=== PATIENT | male | born 1960 | race Caucasian/White ===

== ENCOUNTER 2025-02-07 05:55 | Day surgery (SDC) | payer MEDICARE, SELFPAY ==
[2025-02-07] VITALS (13 sets, daily range): BP systolic 102–189; BP diastolic 47–85; PULSE 52–72; RESP 12–31; TEMP 36.7–36.9; O2SAT 96–100
--- NOTE | ~2025-02-07 | XR_ITS ---
EXAMINATION: C-arm fluoroscopic guidance for retrograde pyelogram and stent placement left side. DATE: 02/07/2025 INDICATION: C-arm assistance for retrograde placement of stent in the left ureter. COMPARISON: CT abdomen and pelvis dated 02/07/2025. FINDINGS: C-arm assistance was provided. Fluoroscopic exposure time 59 seconds. Spot images were obtained documenting the contrast the pelvicalyceal system and left ureter showing hydronephrosis. Proximal end of the stent is noted in the spot images. IMPRESSION: 1. As mentioned above Reviewed, dictated and finalized at location T. RETE BATCHER IMPRESSION: 1. As mentioned above
--- NOTE | ~2025-02-07 | CT_ITS ---
CT ABDOMEN AND PELVIS WITHOUT CONTRAST Clinical History: flank pain, suspect stone Comparison: None Technique: Unenhanced axial images lung bases to symphysis pubis Coronal, sagittal reformats CT images acquired with automatic exposure control for dose reduction DLP: 488 mGy-cm Findings: Without intravenous contrast, sensitivity for detecting visceral parenchymal abnormalities decreased. Lung bases: Clear. Visualized heart and pericardium: Unremarkable. Liver: Unremarkable. Gallbladder: Unremarkable. Spleen: Unremarkable. Pancreas: Unremarkable. Adrenal glands: Unremarkable. Kidneys: Right kidney- No hydronephrosis. A few stones, largest 7 mm. Left kidney- hydronephrosis. A few stones, largest 5 mm. 5 mm stone proximal ureter. Distal esophagus/stomach: Unremarkable. Small bowel loops: Normal caliber and wall thickness. Colon: Normal caliber and wall thickness. Normal RLQ appendix. Nodes: No enlarged nodes. Peritoneum: No ascites. No free intraperitoneal air. Urinary bladder: Unremarkable. Prostate: Prominent. Bones: No acute bony abnormality. Soft tissues: Unremarkable. Unopacified abdominal aorta: No aneurysmal dilatation. Mild atherosclerotic disease. IMPRESSION: 1. Left kidney hydronephrosis due to 5 mm stone proximal ureter. 2. Bilateral nephrolithiasis. Reviewed, dictated and finalized at location R. IN EXTERMINATOR
[2025-02-07] MEDS: HYDROmorphone HCL INJ (*CRX) 1 MG/ML SYR IV PUSH ×4 (06:09→11:21)
[2025-02-07] MEDS: ONDANSETRON INJ 4 MG/2 ML VIAL IV PUSH (06:09)
[2025-02-07] MEDS: LACTATED RINGERS 1,000 ML 999 ML IV CONT ×2 (06:10→07:44)
--- NOTE | 2025-02-07 06:14 | ED_ITS ---
HPI - Abdominal Pain General Chief Complaint: Abdominal Pain <Vishal Gonzalez MD - Last Filed: 02/07/25 07:30> Stated Complaint: Abd/flank pain <Vishal Gonzalez MD - Last Filed: 02/07/25 07:30> Time Seen by Provider: 02/07/25 06:02 <Vishal Gonzalez MD - Last Filed: 02/07/25 07:30> History of Present Illness HPI narrative: 65-year-old male with history of hypertension asthma presenting to the emergency department today with severe abdominal pain. Patient states that started around 11:00 a.m. last night and he was having some difficulties peeing. He states the pain started his left flank and started radiating towards his left back and down into his groin near this testicles. Denies any history of kidney stones. Patient states the pain got worse throughout the evening and he was still having trouble going to the bathroom. No traumatic injuries. Did not take anything for symptoms. Was otherwise in his normal state of health. No fever chills. No chest pain difficulty in breathing. No cardiac history, no vascular history, no surgical history besides a shoulder surgery. <Vishal Gonzalez MD - Last Filed: 02/07/25 07:30> Related Data Allergies/Adverse Reactions: Allergies Allergy/AdvReac Type Severity Reaction Status Date / Time Penicillins Allergy Unknown Unknown Verified 12/29/24 15:40 ibuprofen AdvReac Intermediate FLARES Verified 12/29/24 15:40 ASTHMA <Vishal Gonzalez MD - Last Filed: 02/07/25 07:30> Review of Systems 2 Review of Systems: As reviewed above in HPI <Vishal Gonzalez MD - Last Filed: 02/07/25 07:30> [facility] Past Medical History Medical History: Medical History (Updated 02/07/25 @ 14:51 by Hugh Maza MD) Asthma Overweight <Vishal Gonzalez MD - Last Filed: 02/07/25 07:30> Family History Family History: Family History Sibling Family history of diabetes mellitus in first degree relative Other Carcinoma of colon <Vishal Gonzalez MD - Last Filed: 02/07/25 07:30> Social History Social History: Social History Smoking status: Current some day smoker Tobacco type: cigars Alcohol intake: never Substance use: never Substance use type: does not use Lack of Transportation: No Lack of Food: Never True Current Housing: I Have Housing Concerned About Future Housing: No Difficulty Paying Gas/Electric Bills: No Difficulty Paying for Meds: No Currently Unemployed: No Difficulty w/ Childcare or Family Care: No Living arrangements: with family Spiritual care concerns: No <Vishal Gonzalez MD - Last Filed: 02/07/25 07:30> Exam 2 Narrative: GENERAL: Uncomfortable appearing, writhing around in pain complaining of abdominal left lower quadrant/flank pain HEAD: Normocephalic and atraumatic EYES: PERRLA ENT: Nares clear, no rhinorrhea or epistaxis. Mucous membranes moist. NECK: Supple. CHEST: [Clear to auscultation. No respiratory distress.] HEART: [Regular rate and rhythm]. No murmur heard. [Normal peripheral pulses.] ABDOMEN: Protuberant but soft, reproducible tenderness in the left lower quadrant and left flank. No overlying skin discoloration or bruising. No masses. EXTREMITIES: Normal range of motion. No edema SKIN: Warm, dry, no rash. NEURO: [No focal deficits]. Alert and oriented [x3.] PSYCH: [Normal mood and affect.] <Vishal Gonzalez MD - Last Filed: 02/07/25 07:30> Course Course Emergency Course: Uncontrolled pain. Discussed with urology. Will go to OR for stent. < Roberto Boyce MD - Last Filed: 02/07/25 18:48> Vital Signs Vital signs: Vital Signs Pulse Rate 62 02/07/25 05:59 Respiratory Rate 22 H 02/07/25 05:59 Pulse Oximetry 100 02/07/25 05:59 Oxygen Delivery Room Air 02/07/25 05:59 Temperature 98.0 F 02/07/25 15:30 Pulse Rate 66 02/07/25 17:10 Respiratory Rate 16 02/07/25 17:10 Blood Pressure 149/84 H 02/07/25 17:10 Pulse Oximetry 100 02/07/25 16:40 Oxygen Delivery Room Air 02/07/25 17:10 Oxygen Flow Rate 8 02/07/25 16:00 <Vishal Gonzalez MD - Last Filed: 02/07/25 07:30> Vital Signs Pulse Rate 62 02/07/25 05:59 Respiratory Rate 22 H 02/07/25 05:59 Pulse Oximetry 100 02/07/25 05:59 Oxygen Delivery Room Air 02/07/25 05:59 Temperature 98.0 F 02/07/25 15:30 Pulse Rate 66 02/07/25 17:10 Respiratory Rate 16 02/07/25 17:10 Blood Pressure 149/84 H 02/07/25 17:10 Pulse Oximetry 100 02/07/25 16:40 Oxygen Delivery Room Air 02/07/25 17:10 Oxygen Flow Rate 8 02/07/25 16:00 <Roberto Boyce MD - Last Filed: 02/07/25 18:48> MDM MDM Narrative Medical decision making narrative: 65-year-old male with history of hypertension asthma presenting to the emergency department today with severe abdominal pain. Patient states that started around 11:00 a.m. last night and he was having some difficulties peeing. He states the pain started his left flank and started radiating towards his left back and down into his groin near this testicles. Denies any history of kidney stones. Patient states the pain got worse throughout the evening and he was still having trouble going to the bathroom. No traumatic injuries. Did not take anything for symptoms. Was otherwise in his normal state of health. No fever chills. No chest pain difficulty in breathing. No cardiac history, no vascular history, no surgical history besides a shoulder surgery. Abdomen is protuberant but soft, reproducible tenderness in the left lower quadrant and left flank. No overlying skin discoloration or bruising. No masses. He is writhing around and uncomfortable appearing. Hypertensive likely component of pain. No tachycardia or fever. No hypoxemia. Tachypneic from pain. Patient given a mg of Dilaudid, fluid bolus, Zofran. CT scan without contrast obtained to rule out kidney stone or other potential abdominal pathology. Urinalysis and laboratory studies obtained. Suspect renal colic, kidney stone, obstructing UVJ stone, constipation, diverticulitis less likely, low suspicion cardiovascular causes. CT scan independently reviewed and he does have some kidney stones in the left- sided 5 mm stone with mild hydro. No leukocytosis. Patient has only 48 cc on his bladder scan. Given additional fluid bolus so we can get a urinalysis to see if there is a concomitant infection. His pain is resolved and his vitals have all normalized with pain control. Will refer to urology for follow-up and prescriptions sent. <Vishal Gonzalez MD - Last Filed: 02/07/25 07:30> Differential Diagnosis Differential Diagnosis: Suspect renal colic, kidney stone, obstructing UVJ stone, constipation, diverticulitis less likely, low suspicion cardiovascular causes. <Vishal Gonzalez MD - Last Filed: 02/07/25 07:30> Lab Data MDM Lab Attestation statement: I personally reviewed the patient's lab results. <Vishal Gonzalez MD - Last Filed: 02/07/25 07:30> Result diagrams: 02/07/25 06:11 02/07/25 06:11 <Vishal Gonzalez MD - Last Filed: 02/07/25 07:30> Labs: Lab Results 02/07/25 02/07/25 Range/Units 06:11 09:02 WBC 8.3 (4.5-10.0) K/mm3 RBC 4.77 (4.6-6.20) M/mm3 Hgb 13.7 L (14.0-18.0) g/dL Hct 40.8 L (42.0-52.0) % MCV 85.5 (80-100) fl MCH 28.7 (26-34) pg MCHC 33.6 (32-36) g/dl RDW 13.2 (11.5-14.5) % Plt Count 192 (150-375) k/mm3 MPV 8.5 (7.4-10.4) fl Immature Gran % (Auto) 0.2 (0-0.5) % Neut % (Auto) 84.4 H (45.5-73.1) % Lymph % (Auto) 10.7 L (18.3-44.2) % [place] % (Auto) 4.3 (2.6-8.5) % Eos % (Auto) 0.2 (0-4.4) % Baso % (Auto) 0.2 (0.2-1.2) % Lymph # (Auto) 0.89 L (0.9-3.2) K/mm3 [place] # (Auto) 0.4 (0.1-0.6) K/mm3 Eos # (Auto) 0.0 (0-0.3) K/mm3 Baso # (Auto) 0.0 (0.0-0.1) K/mm3 Abs Immat Gran (auto) 0.02 (0.00-0.031) K/mm3 Absolute Neuts (auto) 7.0 H (1.3-6.7) K/mm3 Absolute Nucleated RBC 0.000 (0.0-0.012) K/mm3 Nucleated RBC % 0.0 (0.0-0.2) % Sodium 132 L (137-145) mmol/L Potassium 4.2 (3.4-5.0) mmol/L Chloride 99 (98-107) mmol/L Carbon Dioxide 21 L (22-30) mmol/L Anion Gap 12 (4-12) mmol/L BUN 26 H (9-20) mg/dL Creatinine 1.42 H (0.7-1.3) mg/dL Estim Creat Clear Calc Not Reportable Estimated GFR 50 L (59 - ) Glucose 152 H (65-110) mg/dL Calcium 9.1 (8.4-10.2) mg/dL Total Bilirubin 0.6 (0.2-1.3) mg/dL AST 36 (17-59) U/L ALT 28 (6-50) U/L Alkaline Phosphatase 112 (38-126) U/L Total Protein 8.3 H (6.3-8.2) g/dL Albumin 4.8 (3.5-5.1) g/dL Lipase 74 (23-300) U/L Urine Color Yellow (Yellow) Urine Appearance Clear (Clear) Urine pH 5.0 (5.0-9.0) Ur Specific [place] 1.020 (1.001-1.035) Urine Protein Trace (Negative) mg/dL Urine Glucose (UA) Negative (Negative) mg/dL Urine Ketones 1+ H (Negative) mg/dL Ur Blood (Man) Negative (Negative) Urine Nitrate Negative (Negative) Urine Bilirubin Negative (Negative) Urine Urobilinogen 0.2 (<2.0) mg/dL Leukocyte Esterase Rfl Negative (Negative) HANDY/UL Urine RBC 0-2 (0-2) /hpf Urine WBC 0-5 (0-3) /hpf Ur Squamous Epith Cells None seen (Few) /hpf Urine Bacteria None seen /hpf Urine Casts 0-2 <Vishal Gonzalez MD - Last Filed: 02/07/25 07:30> Lab Results 02/07/25 02/07/25 Range/Units 06:11 09:02 WBC 8.3 (4.5-10.0) K/mm3 RBC 4.77 (4.6-6.20) M/mm3 Hgb 13.7 L (14.0-18.0) g/dL Hct 40.8 L (42.0-52.0) % MCV 85.5 (80-100) fl MCH 28.7 (26-34) pg MCHC 33.6 (32-36) g/dl RDW 13.2 (11.5-14.5) % Plt Count 192 (150-375) k/mm3 MPV 8.5 (7.4-10.4) fl Immature Gran % (Auto) 0.2 (0-0.5) % Neut % (Auto) 84.4 H (45.5-73.1) % Lymph % (Auto) 10.7 L (18.3-44.2) % [place] % (Auto) 4.3 (2.6-8.5) % Eos % (Auto) 0.2 (0-4.4) % Baso % (Auto) 0.2 (0.2-1.2) % Lymph # (Auto) 0.89 L (0.9-3.2) K/mm3 [place] # (Auto) 0.4 (0.1-0.6) K/mm3 Eos # (Auto) 0.0 (0-0.3) K/mm3 Baso # (Auto) 0.0 (0.0-0.1) K/mm3 Abs Immat Gran (auto) 0.02 (0.00-0.031) K/mm3 Absolute Neuts (auto) 7.0 H (1.3-6.7) K/mm3 Absolute Nucleated RBC 0.000 (0.0-0.012) K/mm3 Nucleated RBC % 0.0 (0.0-0.2) % Sodium 132 L (137-145) mmol/L Potassium 4.2 (3.4-5.0) mmol/L Chloride 99 (98-107) mmol/L Carbon Dioxide 21 L (22-30) mmol/L Anion Gap 12 (4-12) mmol/L BUN 26 H (9-20) mg/dL Creatinine 1.42 H (0.7-1.3) mg/dL Estim Creat Clear Calc Not Reportable Estimated GFR 50 L (59 - ) Glucose 152 H (65-110) mg/dL Calcium 9.1 (8.4-10.2) mg/dL Total Bilirubin 0.6 (0.2-1.3) mg/dL AST 36 (17-59) U/L ALT 28 (6-50) U/L Alkaline Phosphatase 112 (38-126) U/L Total Protein 8.3 H (6.3-8.2) g/dL Albumin 4.8 (3.5-5.1) g/dL Lipase 74 (23-300) U/L Urine Color Yellow (Yellow) Urine Appearance Clear (Clear) Urine pH 5.0 (5.0-9.0) Ur Specific [place] 1.020 (1.001-1.035) Urine Protein Trace (Negative) mg/dL Urine Glucose (UA) Negative (Negative) mg/dL Urine Ketones 1+ H (Negative) mg/dL Ur Blood (Man) Negative (Negative) Urine Nitrate Negative (Negative) Urine Bilirubin Negative (Negative) Urine Urobilinogen 0.2 (<2.0) mg/dL Leukocyte Esterase Rfl Negative (Negative) HANDY/UL Urine RBC 0-2 (0-2) /hpf Urine WBC 0-5 (0-3) /hpf Ur Squamous Epith Cells None seen (Few) /hpf Urine Bacteria None seen /hpf Urine Casts 0-2 <Roberto Boyce MD - Last Filed: 02/07/25 18:48> Imaging Data Radiologist's impression: ITS Impressions Abdomen/Pelvis CT 02/07/25 06:30 IMPRESSION: 1. Left kidney hydronephrosis due to 5 mm stone proximal ureter. 2. Bilateral nephrolithiasis. Retrograde Pyelogram 02/07/25 15:35 IMPRESSION: 1. As mentioned above <Vishal Gonzalez MD - Last Filed: 02/07/25 07:30> ITS Impressions Abdomen/Pelvis CT 02/07/25 06:30 IMPRESSION: 1. Left kidney hydronephrosis due to 5 mm stone proximal ureter. 2. Bilateral nephrolithiasis. Retrograde Pyelogram 02/07/25 15:35 IMPRESSION: 1. As mentioned above <Roberto Boyce MD - Last Filed: 02/07/25 18:48> Discharge Plan Discharge Clinical Impression: Left ureteral stone <Vishal Gonzalez MD - Last Filed: 02/07/25 07:30> Patient Disposition: Still a Patient <Vishal Gonzalez MD - Last Filed: 02/07/25 07:30> Condition: Stable <Vishal Gonzalez MD - Last Filed: 02/07/25 07:30>
[2025-02-07 06:18] LABS: Hematocrit 40.8 % (42.0-52.0); Hemoglobin 13.7 g/dL (14.0-18.0); Immature Granulocyte Percent A 0.2 % (0-0.5); Lymphocytes Absolute Auto 0.89 K/mm3 (0.9-3.2); Mean Corpuscular HGB Conc 33.6 g/dl (32-36); Mean Corpuscular Hemoglobin 28.7 pg (26-34); Mean Corpuscular Volume 85.5 fl (80-100); Nucleated Red Blood Cells Absolute Auto 0.000 K/mm3 (0.0-0.012); Nucleated Red Blood Cells Perc 0.0 % (0.0-0.2); Platelet Count Result 192 k/mm3 (150-375); Red Blood Count 4.77 M/mm3 (4.6-6.20); White Blood Count 8.3 K/mm3 (4.5-10.0)
[2025-02-07 06:28] LABS: Alanine Aminotransferase 28 U/L (6-50); Albumin Level 4.8 g/dL (3.5-5.1); Alkaline Phosphatase 112 U/L (38-126); Anion Gap 12 mmol/L (4-12); Aspartate Amino Transferase 36 U/L (17-59); Bilirubin,Total 0.6 mg/dL (0.2-1.3); Blood Urea Nitrogen 26 mg/dL (9-20); Calcium 9.1 mg/dL (8.4-10.2); Carbon Dioxide 21 mmol/L (22-30); Chloride 99 mmol/L (98-107); Estimated Glomerular Filt Rate 50; Glucose 152 mg/dL (65-110); Lipase 74 U/L (23-300); Potassium 4.2 mmol/L (3.4-5.0); Sodium 132 mmol/L (137-145); Total Protein 8.3 g/dL (6.3-8.2)
--- NOTE | 2025-02-07 08:42 | PC.NURSE ---
patient asked for urine sample again at this time. patient has been unable to urinate and given second bag of fluids to assist. patient declines straight cath and will attempt to give urine at this time.
[2025-02-07 09:47] LABS: Add Urine Microscopic? YES; Appearance Urine Clear (Clear); Glucose Urine UA Negative (Negative); Leukocyte Esterase Ur Negative LEU/UL (Negative); Nitrate Urine Negative (Negative); Non Pathogenic Casts 0-2; Specific Grav Ur 1.020 (1.001-1.035)
--- NOTE | 2025-02-07 14:38 | WPDURCON ---
Assessment and Plan Assessment and plan (1) Left ureteral stone: Code(s): N20.1 - Calculus of ureter Status: Acute Assessment and Plan: IV fluids IV narcotics NPO cystoscopy with left ureteral stent placement anticipate ESWL in near future Urology Consult Note HPI Date Seen: 02/07/25 Requesting Physician: Timmy Saldana MD Primary Care Provider: Camilo Rapp MD Consult Narrative Narrative: Waylon Huff is a 65 year old male seen through the ER with left flank pain. CT has revealed an obstructing 5mm proximal ureteral stone. Pt is controlled with only IV narcotics. He has no fever/chills, or N/V. He is now to undergo cystoscopy with left ureteral stent placement in anticipation of ESWL Review of Systems Constitutional: Constitutional: Reports as per HPI Respiratory: Respiratory: Reports no additional respiratory complaints Genitourinary: Genitourinary: Reports flank pain PMFSH Family History Family History Sibling Family history of diabetes mellitus in first degree relative Other Carcinoma of colon Social History Social History Smoking status: Current some day smoker Tobacco type: cigars Alcohol intake: never Substance use: never Substance use type: does not use Lack of Transportation: No Lack of Food: Never True Current Housing: I Have Housing Concerned About Future Housing: No Difficulty Paying Gas/Electric Bills: No Difficulty Paying for Meds: No Currently Unemployed: No Difficulty w/ Childcare or Family Care: No Living arrangements: with family Spiritual care concerns: No Meds Home Medications and Allergies Home Medications ?Medication ?Instructions ?Recorded ?Confirmed ?Type albuterol 90 mcg-budesonide 80 2 inh inhalation ONCE #10.7 grams 02/05/24 03/06/24 Rx mcg/actuation HFA aerosol inhaler (Airsupra) budesonide-formoterol HFA 160 2 puff inhalation Q12H #10.2 grams 02/05/24 03/06/24 Rx mcg-4.5 mcg/actuation aerosol inhaler (Symbicort) hydrocodone 5 mg-acetaminophen 325 1 tablet PO Q8H PRN pain #14 tabs 02/07/25 Rx mg tablet tamsulosin 0.4 mg capsule 0.4 mg PO DAILY #30 caps 02/07/25 Rx Allergies Allergy/AdvReac Type Severity Reaction Status Date / Time Penicillins Allergy Unknown Unknown Verified 12/29/24 15:40 ibuprofen AdvReac Intermediate FLARES Verified 12/29/24 15:40 ASTHMA Vital Signs Vital Signs - 24 hr 02/07/25 05:59 02/07/25 06:08 02/07/25 07:19 Temperature 36.9 C Pulse Rate 62 67 68 Respiratory Rate 22 H 31 H 18 Blood Pressure 189/85 H 135/78 Pulse Oximetry 100 100 98 Oxygen Delivery Room Air 02/07/25 09:14 02/07/25 12:29 02/07/25 14:17 Temperature Pulse Rate 55 L 55 L 52 L Respiratory Rate 18 19 18 Blood Pressure 145/68 H 156/60 H 145/74 H Pulse Oximetry 96 97 98 Oxygen Delivery Exam Const: General: cooperative, healthy appearing and comfortable Chest: Chest palpation & inspection: normal inspection of the chest and normal palpation of entire chest wall GI: Inspection: normal to inspection and abdominal wall ecchymosis : General: Yes CVA tenderness on the left (left) Neuro: General: oriented to person, oriented to place and oriented to time Results Labs 02/07/25 06:11 02/07/25 06:11 Labs: Short CBC 02/07/25 Range/Units 06:11 WBC 8.3 (4.5-10.0) K/mm3 Hgb 13.7 L (14.0-18.0) g/dL Hct 40.8 L (42.0-52.0) % Plt Count 192 (150-375) k/mm3 BMP 02/07/25 06:11 Sodium 132 L Potassium 4.2 Chloride 99 Carbon Dioxide 21 L BUN 26 H Creatinine 1.42 H Glucose 152 H Calcium 9.1 Liver Function 02/07/25 Range/Units 06:11 Total Bilirubin 0.6 (0.2-1.3) mg/dL AST 36 (17-59) U/L ALT 28 (6-50) U/L Alkaline Phosphatase 112 (38-126) U/L Albumin 4.8 (3.5-5.1) g/dL Urine 02/07/25 Range/Units 09:02 Urine Color Yellow (Yellow) Urine Appearance Clear (Clear) Urine pH 5.0 (5.0-9.0) Ur Specific [place] 1.020 (1.001-1.035) Urine Protein Trace (Negative) mg/dL Urine Glucose (UA) Negative (Negative) mg/dL
--- NOTE | 2025-02-07 14:50 | WPDANESEPPF ---
Anes - Initial Pre Proc Eval Procedure: Operation Date: 02/07/25 15:00 Proposed Procedures p Cystoscopy with Left Stent(Left) - Timmy Saldana MD Date/Time: 02/07/25 14:50 Surgeon: Timmy Saldana MD Pre Op Diagnosis: Abd/flank pain Patient Data Age: 65 Gender: M Height: Weight: Last Vital Signs Temp 36.9 C 02/07/25 06:08 Pulse 52 L 02/07/25 14:17 Resp 18 02/07/25 14:17 BP 145/74 H 02/07/25 14:17 Pulse Ox 98 02/07/25 14:17 O2 Del Method Room Air 02/07/25 05:59 Allergies Allergy/AdvReac Type Severity Reaction Status Date / Time Penicillins Allergy Unknown Unknown Verified 12/29/24 15:40 ibuprofen AdvReac Intermediate FLARES Verified 12/29/24 15:40 ASTHMA Home Medications ?Medication ?Instructions ?Recorded ?Confirmed ?Type albuterol 90 mcg-budesonide 80 2 inh inhalation ONCE #10.7 grams 02/05/24 03/06/24 Rx mcg/actuation HFA aerosol inhaler (Airsupra) budesonide-formoterol HFA 160 2 puff inhalation Q12H #10.2 grams 02/05/24 03/06/24 Rx mcg-4.5 mcg/actuation aerosol inhaler (Symbicort) hydrocodone 5 mg-acetaminophen 325 1 tablet PO Q8H PRN pain #14 tabs 02/07/25 Rx mg tablet tamsulosin 0.4 mg capsule 0.4 mg PO DAILY #30 caps 02/07/25 Rx Laboratory Tests 02/07/25 02/07/25 06:11 09:02 WBC 8.3 K/mm3 (4.5-10.0) RBC 4.77 M/mm3 (4.6-6.20) Hgb 13.7 L g/dL (14.0-18.0) Hct 40.8 L % (42.0-52.0) MCV 85.5 fl (80-100) MCH 28.7 pg (26-34) MCHC 33.6 g/dl (32-36) RDW 13.2 % (11.5-14.5) Plt Count 192 k/mm3 (150-375) MPV 8.5 fl (7.4-10.4) Immature Gran % (Auto) 0.2 % (0-0.5) Neut % (Auto) 84.4 H % (45.5-73.1) Lymph % (Auto) 10.7 L % (18.3-44.2) [place] % (Auto) 4.3 % (2.6-8.5) Eos % (Auto) 0.2 % (0-4.4) Baso % (Auto) 0.2 % (0.2-1.2) Lymph # (Auto) 0.89 L K/mm3 (0.9-3.2) [place] # (Auto) 0.4 K/mm3 (0.1-0.6) Eos # (Auto) 0.0 K/mm3 (0-0.3) Baso # (Auto) 0.0 K/mm3 (0.0-0.1) Abs Immat Gran (auto) 0.02 K/mm3 (0.00-0.031) Absolute Neuts (auto) 7.0 H K/mm3 (1.3-6.7) Absolute Nucleated RBC 0.000 K/mm3 (0.0-0.012) Nucleated RBC % 0.0 % (0.0-0.2) Sodium 132 L mmol/L (137-145) Potassium 4.2 mmol/L (3.4-5.0) Chloride 99 mmol/L (98-107) Carbon Dioxide 21 L mmol/L (22-30) Anion Gap 12 mmol/L (4-12) BUN 26 H mg/dL (9-20) Creatinine 1.42 H mg/dL (0.7-1.3) Estim Creat Clear Calc Not Reportable Estimated GFR 50 L (59 - ) Glucose 152 H mg/dL (65-110) Calcium 9.1 mg/dL (8.4-10.2) Total Bilirubin 0.6 mg/dL (0.2-1.3) AST 36 U/L (17-59) ALT 28 U/L (6-50) Alkaline Phosphatase 112 U/L (38-126) Total Protein 8.3 H g/dL (6.3-8.2) Albumin 4.8 g/dL (3.5-5.1) Lipase 74 U/L (23-300) Urine Color Yellow (Yellow) Urine Appearance Clear (Clear) Urine pH 5.0 (5.0-9.0) Ur Specific [place] 1.020 (1.001-1.035) Urine Protein Trace mg/dL (Negative) Urine Glucose (UA) Negative mg/dL (Negative) Urine Ketones 1+ H mg/dL (Negative) Ur Blood (Man) Negative (Negative) Urine Nitrate Negative (Negative) Urine Bilirubin Negative (Negative) Urine Urobilinogen 0.2 mg/dL (<2.0) Leukocyte Esterase Rfl Negative HANDY/UL (Negative) Urine RBC 0-2 /hpf (0-2) Urine WBC 0-5 /hpf (0-3) Ur Squamous Epith Cells None seen /hpf (Few) Urine Bacteria None seen /hpf Urine Casts 0-2 Patient hx anesthesia problems: none Family hx anesthesia problems: none Results Review: All pre-operative results and documents have been reviewed as part of the pre-operative evaluation. [facility], [facility] Past Medical History Medical History (Updated 02/07/25 @ 14:51 by Hugh Maza MD) Asthma Overweight Family History Family History Sibling Family history of diabetes mellitus in first degree relative Other Carcinoma of colon Social History Social History Smoking status: Current some day smoker Tobacco type: cigars Alcohol intake: never Substance use: never Substance use type: does not use Lack of Transportation: No Lack of Food: Never True Current Housing: I Have Housing Concerned About Future Housing: No Difficulty Paying Gas/Electric Bills: No Difficulty Paying for Meds: No Currently Unemployed: No Difficulty w/ Childcare or Family Care: No Living arrangements: with family Spiritual care concerns: No Anes - Eval Final PreProcedure Day of Procedure 02/07/25 14:50 Patient weight: overweight Heart: regular rate and rhythm Lungs: clear to auscultation Airway: Mallampati scale class II Neurological: alert and oriented Last oral intake: >/= 8 hours ASA classification: II Emergent: no Anesthetic plan: proceed Anesthesia type and monitoring: general LMA and standard monitoring Results Review: All pre-operative results and documents have been reviewed as part of the pre-operative evaluation. Informed Consent: The patient's anesthetic plan and its attendant risks and benefits were discussed with the patient/family/POA. Questions were solicited and answers provided to the satisfaction of the patient/family/POA.
--- NOTE | 2025-02-07 15:03 | WPDHPUPDATE1 ---
History and Physical Update Update Date/Time: 02/07/25 15:03 History and Physical has been reviewed, including an updated exam of the patient. There are NO changes in the patient's condition. Risks, benefits, and alternatives have been discussed and questions answered. Patient agrees to proceed with procedure.
--- NOTE | 2025-02-07 15:27 | W.PM.PROC2 ---
Procedure Note - Detailed Date of Procedure 02/07/25 Pre-op Diagnosis Abd/flank pain obstructing left ureteral stones Post-op Diagnosis Same Procedure Performed cystoscopy with left retrograde pyelography, left ureteral stent placement Surgeon Timmy Saldana MD Anesthesia General Indications obstructining left proximal ureteral stone Description of Procedure Pt was placed in lithotomy position. His genitalia was prepped and draped in sterile fashion. A 22f cystoscope was placed through the urethra and into the bladder. The urethra, prostate and bladder were unremarkable. Using an angiographic cath a left retrograde pyelography was performed. The ureter was normal up to the UPJ where a 5mm stone with proximal hydro was noted. A wire was passed up into the renal pelvis past the stone. Over the wire a 6f x 26cm stent was placed with a curl noted in the renal plevis and bladder. The bladder was drained and scope removed. Pt. was taken to PACU in stable condition. Estimated Blood Loss 0
[2025-02-07] MEDS: LACTATED RINGERS 1,000 ML 30 ML IV CONT (15:30)
== END 2025-02-07 17:35 | disposition home or self-care (01) ==
LOC: ANHED 10:01 → ANHSURGERY 12:02
PROVIDERS: Student in an Organized Health Care Education/Training Program; Emergency Provider Emergency Medicine; PCP Family Medicine; Visit Provider Urology
PROC: (CPT 52352; principal; 2025-02-07 15:00)
DX: N13.2 Hydronephrosis with renal and ureteral calculous obstruction (principal); F17.290 Nicotine dependence, other tobacco product, uncomplicated
CPT/HCPCS: 52332; 36415; 74176; 74420; 80053; 81001; 83690; 85025; 96361; 96374; 96375; 96376; 99285; C1758; C1769; C2617; J0690; J1171; J2405; J2704; J3010; J7120; Q9966

== ENCOUNTER 2025-02-09 14:58 | Outpatient (CLI) | payer MEDICARE, SELFPAY ==
--- NOTE | ~2025-02-09 | XR_ITS ---
XR abdomen/kub 1V 02/09/2025 15:12 Indication: Ureteral stone Procedure: KUB Comparison: CT dated 02/07/2025 Findings: There are bilateral renal stones. There is a left UPJ stone. There is a left internal ureteral stent in expected position. There is a prostate calcification in the pelvis. Nonobstructive bowel gas pattern. Moderate lumbar spondylosis. Lung bases unremarkable. Impression: 1: Left UPJ stone. Bilateral nephrolithiasis. Reviewed, dictated and finalized at location O. [employer] Impression: 1: Left UPJ stone. Bilateral nephrolithiasis.
== END 2025-02-09 14:59 | disposition home or self-care (01) ==
PROVIDERS: PCP Family Medicine; Visit Provider Physician Assistant
DX: N20.2 Calculus of kidney with calculus of ureter (principal)
CPT/HCPCS: 74018

== ENCOUNTER 2025-02-16 11:27 | Outpatient (CLI) | payer MEDICARE, SELFPAY ==
[2025-02-16 12:03] LABS: INR 1.0; Partial Thromboplastin Time 23.2 Seconds (22.3-36.8); Prothrombin Time 13.1 Seconds (11.1-14.7)
== END 2025-02-16 11:28 | disposition home or self-care (01) ==
LOC: ANHSURGERY 11:30
PROVIDERS: PCP Family Medicine; Visit Provider Urology
DX: N20.1 Calculus of ureter (principal)
CPT/HCPCS: 36415; 85610; 85730; 87086